=== PATIENT | female | born 1955 | race Caucasian/White ===

== ENCOUNTER 2017-08-13 17:53 | Observation (INO) | payer OTHER ==
[2017-08-13 18:20] VITALS: BMI 31.8
[2017-08-13] MEDS ORDERED: ACETAMINOPHEN 1000 MG/100 ML VIAL (NON FORMULARY) IVPB ONE (21:03)
[2017-08-13] MEDS ORDERED: ACETAMINOPHEN 500 MG TABLET (FP) PO ONE (22:52)
[2017-08-13] MEDS ORDERED: ACETAMINOPHEN 325 MG TABLET (FP) ONE (22:53)
--- NOTE | 2017-08-13 23:23 | PDOC ---
History of Present Illness - General Chief Complaint: Injury Stated Complaint: FALL Time Seen by Provider: 08/13/17 20:38 - History of Present Illness Initial Comments: 08/13/17 23:15 The patient is a 62 year old female with history of depression, R THR who arrives to the ED s/p fall this evening. The patient states she was in the kitchen cooking a meal when she tripped over a box and fell onto the ceramic tile, hitting both of her knees and the front of her head. During that time, the patient sustained no LOC and asked for help getting up. However, as her family helped her up, the patient began to feel very lightheaded. She subsequently lost consciousness. She was caught by her daughter, who lowered her to the ground. Upon waking up, the patient felt dizzy and nauseous. She denies any neck pain, or any focal numbness or weakness. She denies any visual changes. Endorses mild headache without nausea or vomiting. Denies having any lightheadedness/dizziness prior to tripping. Denies ever having CP/SOB/ palpitations. No abdominal pain. She denies any recent fever, chills, vomiting, diarrhea, cough, SOB, CP, or urinary symptoms. Past History - Past Medical History Allergies/Adverse Reactions: Allergies Allergy/AdvReac Type Severity Reaction Status Date / Time No Known Allergies Allergy Verified 08/13/17 18:08 Home Medications: Ambulatory Orders Bupropion HCl [Wellbutrin -] 400 mg PO DAILY 08/13/17 Citalopram Hydrobromide [Celexa -] 10 mg PO DAILY 08/13/17 Psychiatric Problems: Yes (Depression) - Suicide/Smoking/Psychosocial Hx Smoking History: Never smoked Have you smoked in the past 12 months: No Hx Alcohol Use: No Drug/Substance Use Hx: No Review of Systems - Review of Systems Comments:: 08/13/17 23:19 "GENERAL/CONSTITUTIONAL: No fever or chills. No weakness. HEAD, EYES, EARS, NOSE AND THROAT: No change in vision. No ear pain or discharge. No sore throat. CARDIOVASCULAR: No chest pain or shortness of breath. RESPIRATORY: No cough, wheezing, or hemoptysis. GASTROINTESTINAL: No vomiting, diarrhea or constipation. GENITOURINARY: No dysuria, frequency, or change in urination. MUSCULOSKELETAL: Present: bilateral knee pain No neck or back pain. SKIN: No rash NEUROLOGIC: Present: headache, loss of consciousness No vertigo, or change in strength/sensation. ENDOCRINE: No increased thirst. No abnormal weight change. HEMATOLOGIC/LYMPHATIC: No anemia, easy bleeding, or history of blood clots. ALLERGIC/IMMUNOLOGIC: No hives or skin allergy. " *Physical Exam - Vital Signs Last Vital Signs Temp Pulse Resp BP Pulse Ox 97.6 F 72 18 139/80 98 08/13/17 18:12 08/13/17 18:12 08/13/17 18:12 08/13/17 18:12 08/13/17 18:12 - Physical Exam Comments: 08/13/17 23:20 "GENERAL: Awake, alert, and fully oriented, in no acute distress HEAD: No signs of trauma EYES: PERRLA, EOMI, sclera anicteric, conjunctiva clear ENT: Auricles normal inspection, hearing grossly normal, nares patent, oropharynx clear without exudates. Moist mucosa NECK: Nontender, no stepoffs, Normal ROM, supple, no lymphadenopathy, JVD, or masses LUNGS: Breath sounds equal, clear to auscultation bilaterally. No wheezes, and no crackles HEART: Regular rate and rhythm, normal S1 and S2, no murmurs, rubs or gallops ABDOMEN: Soft, nontender, normoactive bowel sounds. No guarding, no rebound. No masses EXTREMITIES: Normal range of motion, no edema. No clubbing or cyanosis. No cords, erythema, or tenderness NEUROLOGICAL: Cranial nerves II through XII intact. 5/5 strength and sensation in all extremities, Normal speech, normal gait SKIN: Warm, Dry, normal turgor, no rashes or lesions noted. " Heart Score/ECG Review - ECG Impressions Comment:: 08/13/17 23:38 NSR, no JOCELINE/STDs, T wave flattening laterally, intervals wnl, axis wnl ED Treatment Course - LABORATORY CBC & Chemistry Diagram: 08/13/17 23:10 08/13/17 23:10 - RADIOLOGY Radiology Studies Ordered: Category Date Time Status HEAD CT WITHOUT CONTRAST [CT] Stat CT Scan 08/13/17 21:01 Taken CHEST PA & LAT [RAD] Stat Radiology 08/13/17 21:01 Taken KNEE 3 POS-LEFT [RAD] Stat Radiology 08/13/17 21:03 Taken KNEE 3 POS-RIGHT [RAD] Stat Radiology 08/13/17 21:03 Taken PELVIS [RAD] Stat Radiology 08/13/17 21:02 Taken Medical Decision Making - Medical Decision Making 08/13/17 23:24 62 F with mechanical fall + headstrike. Had syncopal episode after fall, possibly due to concussion. Pt with non-focal neuro exam in ER. - Labs, EKG - CT head - XR knees, chest, pelvis 08/14/17 00:55 X rays negative for acute fx Labs wnl CT head shows "small, vague, ill-defined area of low attenuation by the left hippocampus." Likely artifactual, but mass lesion or infarct cannot be ruled out. Spoke with Dr. Garner, neuro independent consultant, who recommends MRI. Pt to be admitted to obs for MRI and neuro eval. Will also admit for tele monitoring given syncope. *DC/Admit/Observation/Transfer Diagnosis at time of Disposition: Abnormal computerized tomography of brain - Discharge Dispostion Admit: Yes - Attestations Physician Attestion: 08/14/17 02:01 I, Dr. Red Ackerman MD, attest that this document has been prepared under my direction and personally reviewed by me in its entirety. I further attest, that it accurately reflects all work, treatment, procedures and medical decision -making performed by me.
[2017-08-13 23:24] LABS: BASOPHIL 0.9 % (0-2.0); EOSINOPHIL 2.1 % (0-4.5); MCH 29.1 pg (25.7-33.7); MCHC 33.8 g/dl (32.0-36.0); MEAN CELL VOLUME 86.1 fl (80-96); MEAN PLT VOLUME 6.8 fl (7.5-11.1); NEUTROPHILS 68.4 % (42.8-82.8); PLATELET COUNT 368 K/MM3 (134-434); RDW 13.5 % (11.6-15.6); WHITE BLOOD COUNT 9.7 K/mm3 (4.0-10.0)
[2017-08-13 23:36] LABS: INR 0.99 (0.82-1.09); PROTHROMBIN TIME (PATIENT) 11.2 SEC (9.98-11.88)
[2017-08-13 23:39] LABS: ACTIVATED PTT 28.1 SECONDS (26.9-34.4)
[2017-08-13 23:46] LABS: ALBUMIN 3.4 g/dl (3.4-5.0); ALK PHOS 88 U/L (45-117); ANION GAP 10 (8-16); BILIRUBIN,TOTAL 0.2 mg/dL (0.2-1.0); CALCIUM 8.9 mg/dL (8.5-10.1); CO2 27 mmol/L (21-32); CREATININE 0.8 mg/dL (0.55-1.02); GLUCOSE,RANDOM 144 mg/dL (74-106); SGOT/AST 17 U/L (15-37); SGPT/ALT 22 U/L (12-78); TOT PROT 6.5 g/dl (6.4-8.2)
[2017-08-13 23:47] LABS: CPK 102 IU/L (26-192)
[2017-08-13 23:49] LABS: TROPONIN I < 0.02 ng/ml (0.00-0.05)
--- NOTE | 2017-08-14 01:36 | HP ---
CHIEF COMPLAINT: s/p Fall, Syncope PCP: Doctor not on Staff HISTORY OF PRESENT ILLNESS: This is a 62 y/o woman with a past medical history of Depression. Who presents to the ED for Syncope s/p mechanical fall x last night. Patient reports while at her daughter's house in the kitchen, she tripped over a box and hit the frontal aspect of her head onto the ceramic tile. While being helped back up, she states" I became dizzy and I fainted' Patient reports that her daughter and son in law caught her and eased her down to the floor, calling EMS. Patient reports feeling nauseous, and having B/L knee pain. Patient reports having generalized body-aches. Patient denies cervical pain, blurred vision, no focal deficits or numbness. Patient denies fever, chills, cough, SOB, CP, AP, V/D, constipation, dysuria. Patient reports being UTD with her Tetanus vaccine. ER course was notable for: (1) CT Brain- small vague ill defined area of low attenuation by the left hippocampus. Cannot r/o mass lesion or infarct (2) Glucose 144 (3) Chest Xray- image no infiltrate or effusions Recent Travel: None PAST MEDICAL HISTORY: Depression PAST SURGICAL HISTORY: R- THR Social History: Smoking: Never Alcohol: None Drugs: None Lives with spouse, employed Psychotherapist Family History: Father: Stroke Mother: Alzheimer's, HTN Allergies No Known Allergies Allergy (Verified 08/13/17 18:08) HOME MEDICATIONS: Home Medications Medication Instructions Recorded Bupropion HCl [Wellbutrin -] 400 mg PO DAILY 08/13/17 Citalopram Hydrobromide [Celexa -] 10 mg PO DAILY 08/13/17 REVIEW OF SYSTEMS CONSTITUTIONAL: Absent: fever, chills, diaphoresis, generalized weakness, malaise, loss of appetite, weight change HEENT: Absent: rhinorrhea, nasal congestion, throat pain, throat swelling, difficulty swallowing, mouth swelling, ear pain, eye pain, visual changes CARDIOVASCULAR: syncope Absent: chest pain, palpitations, irregular heart rate, lightheadedness, peripheral edema RESPIRATORY: Absent: cough, shortness of breath, dyspnea with exertion, orthopnea, wheezing, stridor, hemoptysis GASTROINTESTINAL: Absent: abdominal pain, abdominal distension, nausea, vomiting, diarrhea, constipation, melena, hematochezia GENITOURINARY: Absent: dysuria, frequency, urgency, hesitancy, hematuria, flank pain, genital pain MUSCULOSKELETAL: B/L knee pain Absent: myalgia, arthralgia, joint swelling, back pain, neck pain SKIN: Absent: rash, itching, pallor HEMATOLOGIC/IMMUNOLOGIC: Absent: easy bleeding, easy bruising, lymphadenopathy, frequent infections ENDOCRINE: Absent: unexplained weight gain, unexplained weight loss, heat intolerance, cold intolerance NEUROLOGIC: dizziness, unsteady gait Absent: headache, focal weakness or paresthesias, seizure, mental status changes , bladder or bowel incontinence PSYCHIATRIC: Absent: anxiety, depression, suicidal or homicidal ideation, hallucinations. PHYSICAL EXAMINATION Vital Signs - 24 hr 08/13/17 18:12 Temperature 97.6 F Pulse Rate 72 Respiratory 18 Rate Blood Pressure 139/80 O2 Sat by Pulse 98 Oximetry (%) GENERAL: Awake, alert, and fully oriented, in no acute distress. HEAD: Normal with no signs of trauma. +Tenderness to forehead on palpation EYES: Pupils equal, round and reactive to light, extraocular movements intact, sclera anicteric, conjunctiva clear. No lid lag. EARS, NOSE, THROAT: Ears normal, nares patent, oropharynx clear without exudates. Moist mucous membranes. NECK: Normal range of motion, supple without lymphadenopathy, JVD, or masses. LUNGS: Breath sounds equal, clear to auscultation bilaterally. No wheezes, and no crackles. No accessory muscle use. HEART: Regular rate and rhythm, normal S1 and S2 without murmur, rub or gallop. ABDOMEN: Soft, nontender, not distended, normoactive bowel sounds, no guarding, no rebound, no masses. No hepatomegaly or splenomegaly. MUSCULOSKELETAL: Normal range of motion at all joints. No bony deformities or tenderness. No CVA tenderness. UPPER EXTREMITIES: 2+ pulses, warm, well-perfused. No cyanosis. No clubbing. No peripheral edema. LOWER EXTREMITIES: 2+ pulses, warm, well-perfused. No calf tenderness. No peripheral edema. NEUROLOGICAL: Cranial nerves II-XII intact. Normal speech. Gait not observed. PSYCHIATRIC: Cooperative. Good eye contact. Appropriate mood and affect. SKIN: Warm, dry, normal turgor, no rashes normal capillary refill. Superficial abrasion to right anterior knee noted Laboratory Results - last 24 hr 08/13/17 08/13/17 08/13/17 23:10 23:10 23:10 WBC 9.7 RBC 4.44 Hgb 12.9 Hct 38.2 MCV 86.1 MCH 29.1 MCHC 33.8 RDW 13.5 Plt Count 368 MPV 6.8 L Neutrophils % 68.4 Lymphocytes % 22.9 Monocytes % 5.7 Eosinophils % 2.1 Basophils % 0.9 PT with INR 11.20 INR 0.99 PTT (Actin FS) 28.1 Sodium Potassium Chloride Carbon Dioxide Anion Gap BUN Creatinine Creat Clearance w eGFR Random Glucose Calcium Total Bilirubin AST ALT Alkaline Phosphatase Creatine Kinase 102 Troponin I < 0.02 B-Natriuretic Peptide 20.76 Total Protein Albumin 08/13/17 23:10 WBC RBC Hgb Hct MCV MCH MCHC RDW Plt Count MPV Neutrophils % Lymphocytes % Monocytes % Eosinophils % Basophils % PT with INR INR PTT (Actin FS) Sodium 142 Potassium 3.9 Chloride 105 Carbon Dioxide 27 Anion Gap 10 BUN 14 Creatinine 0.8 Creat Clearance w eGFR > 60 Random Glucose 144 H Calcium 8.9 Total Bilirubin 0.2 AST 17 ALT 22 Alkaline Phosphatase 88 Creatine Kinase Troponin I B-Natriuretic Peptide Total Protein 6.5 Albumin 3.4 ASSESSMENT/PLAN: This is a 62 y/o woman with a PMHx of: Depression. Placed on Observation for Syncope secondary to mechanical fall for further evaluation of their emergent condition. Plan: 1. Syncope - s/p Mechanical Fall - CT Brain- reviewed - Appreciate Neuro Consult - MRI Brain in am (per Neuro recommendation) - Neuro Checks - Fall precautions - Vital signs - Keep NPO until cleared by Neuro - Gentle IVF - Repeat CBC, BMP in am 2. Bilateral Knee Pain - s/p mechanical fall - B/l Knee xray image- no obvious deformity or fx, awaiting report - Tylenol given in ED, will continue 3. Depression - Controlled - Continue home meds 4. FEN - NS@60cc/hr - Replete lytes prn - NPO 5. DVT Prophylaxis - OOB - SCDs Code Status: Full Code Problem List - Problem (1) Syncope Code(s): R55 - SYNCOPE AND COLLAPSE (2) Fall at home Code(s): W19.XXXA - UNSPECIFIED FALL, INITIAL ENCOUNTER Y92.099 - UNSP PLACE IN OTH NON-INSTITUTIONAL RESIDENCE PLACE (3) DVT prophylaxis Code(s): FUE4863 - Visit type - Emergency Visit Emergency Visit: Yes ED Registration Date: 08/14/17 Care time: The patient presented to the Emergency Department on the above date and was hospitalized for further evaluation of their emergent condition. - New Patient This patient is new to me today: Yes Date on this admission: 08/14/17 - Critical Care Critical Care patient: No
[2017-08-14] MEDS ORDERED: SODIUM CHLORIDE 1,000 ML IV SCH (01:45)
[2017-08-14] MEDS ORDERED: morphine CARPU-JECT 2 MG/1 ML DISP.SYRIN IVPUSH ONE (03:05)
[2017-08-14] MEDS ORDERED: ONDANSETRON 4 MG/2 ML VIAL IVPUSH PRN (03:07)
[2017-08-14] MEDS ORDERED: morphine CARPU-JECT 2 MG/1 ML DISP.SYRIN ONE (03:17)
[2017-08-14] MEDS ORDERED: CITALOPRAM HYDROBROMIDE 10 MG TABLET (FP) PO SCH ×2 (10:00→10:45)
--- NOTE | 2017-08-14 12:36 | EKG ---
Test Reason : Blood Pressure : / mmHG Vent. Rate : 075 BPM Atrial Rate : 075 BPM P-R Int : 172 ms QRS Dur : 070 ms QT Int : 410 ms P-R-T Axes : 040 062 074 degrees QTc Int : 457 ms NORMAL SINUS RHYTHM NONSPECIFIC T WAVE ABNORMALITY ABNORMAL ECG NO PREVIOUS ECGS AVAILABLE Confirmed by JESS MARIEE MD ([id number]) on 08/14/2017 12:35:42 PM Referred By: Confirmed By:JESS MARIEE MD
--- NOTE | 2017-08-14 13:19 | DS ---
Physical Exam: SUBJECTIVE: Patient seen and examined OBJECTIVE: Vital Signs Period Temp Pulse Resp BP Sys/Artis Pulse Ox Last 24 Hr 98.3 F 70 16-16 106/80 98 PHYSICAL EXAM GENERAL: The patient is awake, alert, and fully oriented, in no acute distress. HEAD: Normal with no signs of trauma. Mild tenderness left forehead at the hairline. No ecchymosis. EYES: PERRL, extraocular movements intact, sclera anicteric, conjunctiva clear. ENT: Ears normal, nares patent, oropharynx clear without exudates, moist mucous membranes. NECK: Trachea midline, full range of motion, supple. LUNGS: Breath sounds equal, clear to auscultation bilaterally, no wheezes, no crackles, no accessory muscle use. HEART: Regular rate and rhythm, S1, S2 without murmur, rub or gallop. ABDOMEN: Soft, nontender, nondistended, normoactive bowel sounds, no guarding, no rebound, no hepatosplenomegaly, no masses. EXTREMITIES: 2+ pulses, warm, well-perfused, no edema. NEUROLOGICAL: Cranial nerves II through XII grossly intact. Normal speech, gait not observed. LABS CBCD WBC 9.7 K/mm3 (4.0-10.0) 08/13/17 23:10 RBC 4.44 M/mm3 (3.60-5.2) 08/13/17 23:10 Hgb 12.9 GM/dL (10.7-15.3) 08/13/17 23:10 Hct 38.2 % (32.4-45.2) 08/13/17 23:10 MCV 86.1 fl (80-96) 08/13/17 23:10 MCHC 33.8 g/dl (32.0-36.0) 08/13/17 23:10 RDW 13.5 % (11.6-15.6) 08/13/17 23:10 Plt Count 368 K/MM3 (134-434) 08/13/17 23:10 MPV 6.8 fl (7.5-11.1) L 08/13/17 23:10 CMP Sodium 142 mmol/L (136-145) 08/13/17 23:10 Potassium 3.9 mmol/L (3.5-5.1) 08/13/17 23:10 Chloride 105 mmol/L (98-107) 08/13/17 23:10 Carbon Dioxide 27 mmol/L (21-32) 08/13/17 23:10 Anion Gap 10 (8-16) 08/13/17 23:10 BUN 14 mg/dL (7-18) 08/13/17 23:10 Creatinine 0.8 mg/dL (0.55-1.02) 08/13/17 23:10 Creat Clearance w eGFR > 60 (>60) 08/13/17 23:10 Calcium 8.9 mg/dL (8.5-10.1) 08/13/17 23:10 Total Bilirubin 0.2 mg/dL (0.2-1.0) 08/13/17 23:10 AST 17 U/L (15-37) 08/13/17 23:10 ALT 22 U/L (12-78) 08/13/17 23:10 Alkaline Phosphatase 88 U/L (45-117) 08/13/17 23:10 Total Protein 6.5 g/dl (6.4-8.2) 08/13/17 23:10 Albumin 3.4 g/dl (3.4-5.0) 08/13/17 23:10 HOSPITAL COURSE: Date of Admission:08/14/17 Date of Discharge: 08/14/17 Pre hospital course This is a 62 y/o woman with a past medical history of depression who presented to the ED s/p mechanical fall. Patient reported while at her daughter's house in the kitchen, she tripped over a box hitting both knees and the front of her head on a ceramic tile floor. She did not lose consciousness and asked her family to help her up. While being helped up, she became dizzy and lightheaded and was lowered back to the floor. EMS was activated. Hospital course by problem list Dizziness following mechanical fall striking head --initial overnight read of head CT was suspicious for possible CVA, official read was negative for acute pathology --MRI today negative for acute pathology --seen and evaluated by neuro Bilateral knee pain --imaging negative for fracture; small bilateral knee effusions Depression --continued home medications Minutes to complete discharge: 35 Discharge Summary Reason For Visit: ABNORMAL CT OF BRAIN Current Active Problems Abnormal CT of brain (Acute) DVT prophylaxis (Acute) Fall at home (Acute) Syncope (Acute) Condition: Improved - Instructions Diet, Activity, Other Instructions: Return to the emergency department for any new or worsening symptoms. Referrals: Juan Garner MD [Staff Physician] - Disposition: HOME - Home Medications Comprehensive Discharge Medication List: Ambulatory Orders Bupropion HCl [Wellbutrin -] 400 mg PO DAILY 08/13/17 Citalopram Hydrobromide [Celexa -] 10 mg PO DAILY 08/13/17 This patient is new to me today: Yes Date on this admission: 08/14/17 Emergency Visit: Yes ED Registration Date: 08/14/17 Care time: The patient presented to the Emergency Department on the above date and was hospitalized for further evaluation of their emergent condition. Critical Care patient: No - Discharge Referral Referred to [facility] Med P.C.: No
--- NOTE | 2017-08-14 13:40 | CONSULT ---
Consult - text type - Consultation Consultation Note: Neurology History of Present Illness The patient is a 62 year old female with history of depression, R THR who arrives to the ED s/p fall last evening. The patient states she was in the kitchen cooking a meal when she tripped over a box and fell onto the ceramic tile, hitting both of her knees and the front of her head. During that time, the patient sustained no LOC and asked for help getting up. However, as her family helped her up, the patient began to feel very lightheaded. She subsequently lost consciousness. She was caught by her daughter, who lowered her to the ground. Upon waking up, the patient felt dizzy and nauseous. She denies any neck pain, or any focal numbness or weakness. She denies any visual changes. Endorses mild headache without nausea or vomiting. Denies having any lightheadedness/dizziness prior to tripping. Denies ever having CP/SOB/ palpitations. No abdominal pain. She denies any recent fever, chills, vomiting, diarrhea, cough, SOB, CP, or urinary symptoms. CT head showed area suspicious for possible CVA. MRI brain completed and reviewed and did not show infarct. Patient at baseline and without deficits. Discussed CVA risk factors and primary prevention and patient understood. Plan is for discharge today. Past History - Past Medical History Allergies/Adverse Reactions: Allergies Allergy/AdvReac Type Severity Reaction Status Date / Time No Known Allergies Allergy Verified 08/13/17 18:08 Home Medications: Ambulatory Orders Bupropion HCl [Wellbutrin -] 400 mg PO DAILY 08/13/17 Citalopram Hydrobromide [Celexa -] 10 mg PO DAILY 08/13/17 Psychiatric Problems: Yes (Depression) - Suicide/Smoking/Psychosocial Hx Smoking History: Never smoked Have you smoked in the past 12 months: No Hx Alcohol Use: No Drug/Substance Use Hx: No Review of Systems "GENERAL/CONSTITUTIONAL: No fever or chills. No weakness. HEAD, EYES, EARS, NOSE AND THROAT: No change in vision. No ear pain or discharge. No sore throat. CARDIOVASCULAR: No chest pain or shortness of breath. RESPIRATORY: No cough, wheezing, or hemoptysis. GASTROINTESTINAL: No vomiting, diarrhea or constipation. GENITOURINARY: No dysuria, frequency, or change in urination. MUSCULOSKELETAL: Present: bilateral knee pain No neck or back pain. SKIN: No rash NEUROLOGIC: Present: headache, loss of consciousness No vertigo, or change in strength/sensation. ENDOCRINE: No increased thirst. No abnormal weight change. HEMATOLOGIC/LYMPHATIC: No anemia, easy bleeding, or history of blood clots. ALLERGIC/IMMUNOLOGIC: No hives or skin allergy. " *Physical Exam Vital Signs Temperature 98.3 F 08/14/17 08:15 Pulse Rate 70 08/14/17 08:15 Respiratory Rate 16 08/14/17 08:15 Blood Pressure 106/80 08/14/17 08:15 O2 Sat by Pulse Oximetry (%) 98 08/14/17 08:15 "GENERAL: Awake, alert, and fully oriented, in no acute distress HEAD: No signs of trauma EYES: PERRLA, EOMI, sclera anicteric, conjunctiva clear ENT: Auricles normal inspection, hearing grossly normal, nares patent, oropharynx clear without exudates. Moist mucosa NECK: Nontender, no stepoffs, Normal ROM, supple, no lymphadenopathy, JVD, or masses LUNGS: Breath sounds equal, clear to auscultation bilaterally. No wheezes, and no crackles HEART: Regular rate and rhythm, normal S1 and S2, no murmurs, rubs or gallops ABDOMEN: Soft, nontender, normoactive bowel sounds. No guarding, no rebound. No masses EXTREMITIES: Normal range of motion, no edema. No clubbing or cyanosis. No cords, erythema, or tenderness NEUROLOGICAL: Cranial nerves II through XII intact. 5/5 strength and sensation in all extremities, Normal speech, normal gait SKIN: Warm, Dry, normal turgor, no rashes or lesions noted. " Heart Score/ECG Review 08/13/17 23:38 NSR, no JOCELINE/STDs, T wave flattening laterally, intervals wnl, axis wnl CBCD WBC 9.7 K/mm3 (4.0-10.0) 08/13/17 23:10 RBC 4.44 M/mm3 (3.60-5.2) 08/13/17 23:10 Hgb 12.9 GM/dL (10.7-15.3) 08/13/17 23:10 Hct 38.2 % (32.4-45.2) 08/13/17 23:10 MCV 86.1 fl (80-96) 08/13/17 23:10 MCHC 33.8 g/dl (32.0-36.0) 08/13/17 23:10 RDW 13.5 % (11.6-15.6) 08/13/17 23:10 Plt Count 368 K/MM3 (134-434) 08/13/17 23:10 MPV 6.8 fl (7.5-11.1) L 08/13/17 23:10 CMP Sodium 142 mmol/L (136-145) 08/13/17 23:10 Potassium 3.9 mmol/L (3.5-5.1) 08/13/17 23:10 Chloride 105 mmol/L (98-107) 08/13/17 23:10 Carbon Dioxide 27 mmol/L (21-32) 08/13/17 23:10 Anion Gap 10 (8-16) 08/13/17 23:10 BUN 14 mg/dL (7-18) 08/13/17 23:10 Creatinine 0.8 mg/dL (0.55-1.02) 08/13/17 23:10 Creat Clearance w eGFR > 60 (>60) 08/13/17 23:10 Calcium 8.9 mg/dL (8.5-10.1) 08/13/17 23:10 Total Bilirubin 0.2 mg/dL (0.2-1.0) 08/13/17 23:10 AST 17 U/L (15-37) 08/13/17 23:10 ALT 22 U/L (12-78) 08/13/17 23:10 Alkaline Phosphatase 88 U/L (45-117) 08/13/17 23:10 Total Protein 6.5 g/dl (6.4-8.2) 08/13/17 23:10 Albumin 3.4 g/dl (3.4-5.0) 08/13/17 23:10 - RADIOLOGY CT head reviewed MRI brain reviewed Medical Decision Making 62 year old female with history of depression, R THR who arrives to the ED s/p fall last evening. The patient states she was in the kitchen cooking a meal when she tripped over a box and fell onto the ceramic tile, hitting both of her knees and the front of her head. During that time, the patient sustained no LOC and asked for help getting up. However, as her family helped her up, the patient began to feel very lightheaded. CT head showed area suspicious for possible CVA. MRI brain completed and reviewed and did not show infarct. Patient at baseline and without deficits. Discussed CVA risk factors and primary prevention and patient understood. Plan is for discharge today. Defer to PCP regarding any further cardiac work up Provided information for outpaitnet follow up
[2017-08-14 14:15] VITALS: TEMP 98.2
[2017-08-14] MEDS ORDERED: INSULIN (NOVOLOG) ASPART 100 UNITS/ML 10ML VIAL SQ SCH (16:30)
[2017-08-14 16:32] VITALS: BP 132/76; PULSE 82
== END 2017-08-15 08:30 | disposition home or self-care (01) ==
LOC: JER 17:53 → JERBED 08-14 02:00 → UNDOADMOB 08-14 02:10 → JERBED 08-14 02:10
PROVIDERS: ADMIT Internal Medicine; ATTEND Nurse Practitioner Family
PROC: 3E033GC Introduction of Other Therapeutic Substance into Peripheral Vein, Percutaneous Approach (ICD-10-PCS; principal; 2017-08-14)
PROC: 3E0337Z Introduction of Electrolytic and Water Balance Substance into Peripheral Vein, Percutaneous Approach (ICD-10-PCS; 2017-08-14)
DX: R93.0 Abnormal findings on diagnostic imaging of skull and head, not elsewhere classified (principal); R55 Syncope and collapse; M25.562 Pain in left knee; M25.561 Pain in right knee; F32.9 Major depressive disorder, single episode, unspecified; R42 Dizziness and giddiness; W01.0XXA Fall on same level from slipping, tripping and stumbling without subsequent striking against object, initial encounter; Y93.89 Activity, other specified; Y92.090 Kitchen in other non-institutional residence as the place of occurrence of the external cause
CPT/HCPCS: 36415; 70450-TC; 70551-TC; 71020-TC; 72170-TC; 73562-TC-LT; 73562-TC-RT; 80053; 82550; 83880; 84484; 85025; 85610; 85730; 93005; 93010; 96374; 99285-25; G0378